=== PATIENT | male | born 1950 ===

== ENCOUNTER 2024-06-11 09:13 | Outpatient (AMB) | payer MEDICARE, SELFPAY ==
--- NOTE | 2024-06-11 09:24 | MHC.OFFVIS ---
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 He did undergo low back surgery by Dr. Luciano Espinal just prior to his left total hip replacement surgery in September of 2018. He denies any fevers or chills. States that his back pain has gotten worse over the last 2 years in spite of continued non operative treatments. He has done physical therapy exercises which aggravated his back pain. He has tried Tylenol and anti-inflammatory medicines which gave him minimal relief. The patient states that his back pain is interfering with his activities of daily living and his ability to sleep well through the night. Allergies No Known Allergies Allergy (Verified 06/11/24 09:27) Medication List - Last Reconciled 06/12/24 by Albert Lawson MD No Known Home Meds [facility] Surgical History (Updated 06/11/24 @ 09:30 by Sarabjit Andrade) History of left hip replacement Social History (Updated 06/11/24 @ 09:28 by Sarabjit Andrade) Alcohol intake: never Patient Tobacco Use Status: Never used Tobacco Current occupational status: employed Physical Exam Const Other: Well-nourished well-developed very friendly male awake alert and oriented x3 in no acute distress Back/Spine/Pelvis Other: Low back examination shows left-sided paraspinal muscle tenderness, pain with range of motion, positive straight leg raise test on the left at 70 degrees, 4/5 strength with testing of his left hip flexors and knee extensors when compared to 5/5 strength on his right side Extrem Other: Left hip examination shows minimal discomfort with range of motion, no tenderness over his bursa Results Reviewed Results Reviewed: X-rays of the patient's lower lumbar spine show moderate to severe diffuse degenerative disc disease, no acute bony abnormalities X-rays of the patient's left hip show a total hip arthroplasty in good position with no signs of loosening, no acute bony abnormalities Assessment & Plan Assessment & Plan (1) Low Back Pain: Code(s): M54.50 - Low back pain, unspecified Plan Mr. Odom continues to do fairly well after undergoing left total hip replacement surgery in September of 2018. He does have progressively worsening low back pain with associated left leg weakness possibly due to lumbar stenosis or a disc herniation. Thus, I will send him for an MRI of his lumbar spine for further evaluation. I will contact him by phone once the MRI results are available. He will call me prior to that time should his symptoms worsen in any way. Feel free to call me at any time should questions regarding his orthopedic management arise. I spent 20 minutes in reviewing the patient's records and imaging studies, seeing the patient and documenting in the medical record. Orders: Orders XR hip LT min 2V 06/11/24 M25.552 - Pain in left hip MR lumbar spine wo con 06/11/24 M54.50 - Low back pain, unspecified Coding Level of Care Code Est Pt Level 3 (79375) Diagnoses Low Back Pain M54.50
== END 2024-06-11 10:00 | disposition home or self-care (01) ==
PROVIDERS: PCP Internal Medicine; Visit Provider Orthopaedic Surgery
DX: M54.50 Low back pain, unspecified (principal)
CPT/HCPCS: 99213

== ENCOUNTER 2024-06-11 10:38 | Outpatient (REF) | payer MEDICARE, SELFPAY ==
--- NOTE | ~2024-06-11 | XR_ITS ---
EXAMINATION: XR HIP, LEFT CLINICAL INFORMATION: Hip pain COMPARISON: None available. TECHNIQUE: Two views of the left hip and pelvis. FINDINGS: Surgical mesh from prior hernia repair. Post surgical changes left hip arthroplasty. No evidence of hardware fracture or complication. Right hip and sacroiliac joint spaces are maintained. Degenerative disc disease in the visualized lower lumbosacral spine. Few foci of calcification adjacent to the left greater trochanter may reflect foci of heterotopic ossification. Atherosclerotic vascular calcification. XR/XR hip LT min 2V IMPRESSION: 1. Post surgical changes left hip arthroplasty. No evidence of hardware fracture or complication. 2. Degenerative disc disease in the visualized lower lumbosacral spine. 3. Few foci of calcification adjacent to the left greater trochanter may reflect foci of heterotopic ossification. Electronically signed by: Aubrie Castillo MD 07/04/2024 09:36 PM EDT
== END 2024-06-11 10:39 | disposition home or self-care (01) ==
LOC: HO.HOSX 10:38
PROVIDERS: Visit Provider Orthopaedic Surgery
DX: M25.552 Pain in left hip (principal); M54.50 Low back pain, unspecified
CPT/HCPCS: 73502; 99212

== ENCOUNTER 2024-07-17 09:36 | Outpatient (AMB) | payer MEDICARE, SELFPAY ==
--- NOTE | 2024-07-17 09:38 | A.OFFVIS_ITS ---
Intake Visit Reasons: MRI Lumbar Spine Review Intake Note: Chirag is a 74 year old male who presents with complaints of progressively worsening low back pain as well as intermittent weakness in his left leg. He did undergo low back surgery by Dr. Luciano Espinal just prior to his left total hip replacement surgery in September of 2018. He denies any fevers or chills. States that his back pain has gotten worse over the last 2 years in spite of continued non operative treatments. He has done physical therapy exercises which aggravated his back pain. He has tried Tylenol and anti- inflammatory medicines which gave him minimal relief. The patient states that his back pain is interfering with his activities of daily living and his ability to sleep well through the night. Allergies No Known Allergies Allergy (Verified 07/17/24 09:41) Medication List - Last Reconciled 07/17/24 by Albert Lawson MD No Known Home Meds [facility] Surgical History (Updated 06/11/24 @ 09:30 by Sarabjit Andrade) History of left hip replacement Social History (Updated 06/11/24 @ 09:28 by Sarabjit Andrade) Alcohol intake: never Patient Tobacco Use Status: Never used Tobacco Current occupational status: employed Physical Exam Const Other: Well-nourished well-developed very friendly male awake alert and oriented x3 in no acute distress Back/Spine/Pelvis Other: Low back examination shows left-sided paraspinal muscle tenderness, pain with range of motion, positive straight leg raise test on the left at 70 degrees Results Reviewed Results Reviewed: MRI of the patient's lumbar spine performed at [facility] imaging shows evidence of mild to moderate canal narrowing and moderate bilateral foraminal narrowing Assessment & Plan Assessment & Plan (1) Low back pain radiating to left leg: Code(s): M54.50 - Low back pain, unspecified; M79.605 - Pain in left leg Category: Medical Plan Mr. Odom presents with progressively worsening low back pain due to lumbar stenosis. Thus, I will arrange for the patient to have an evaluation in our neurosurgery department here at [facility]. The patient will contact me prior to that appointment should his symptoms worsen in any way. Feel free to call me at any time should questions regarding his orthopedic management arise. I spent 22 minutes in reviewing the patient's records and imaging studies, seeing the patient and documenting in the medical record. Orders: Referrals Neuro Spine Referral M54.50 - Low back pain, unspecified, M79.605 - Pain in left leg Coding Level of Care Code Est Pt Level 3 (74627) Complex EM visit Add On G2211 Diagnoses Low back pain radiating to left leg M54.50; M79.605
== END 2024-07-17 10:03 | disposition home or self-care (01) ==
PROVIDERS: PCP Internal Medicine; Visit Provider Orthopaedic Surgery
DX: M48.061 Spinal stenosis, lumbar region without neurogenic claudication (principal); M79.605 Pain in left leg
CPT/HCPCS: 99213; G2211

== ENCOUNTER → 2024-07-17 09:36 | Outpatient (BNVA) | payer MEDICARE, SELFPAY | PROVIDERS: PCP Internal Medicine; Visit Provider Orthopaedic Surgery | DX: M54.50 Low back pain, unspecified (principal); M79.605 Pain in left leg | CPT/HCPCS: 99212 ==

== ENCOUNTER 2024-08-02 09:06 | Outpatient (AMB) | payer MEDICARE, SELFPAY ==
--- NOTE | 2024-08-02 09:07 | A.SPINEOV_ITS ---
Intake Visit Reasons: lumbar stenosis Intake Note: Mr. Odom is here today c/o low back pain. 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 HPI: This 74-year-old male with a history of a left hip replacement and a lumbar decompression in the past presents with progressive left-sided back pain over the last past year. Pain is worse in the morning. Basically the pain is present the whole day. The patient noticed that he walks in a flexed position to alleviate symptoms. Leaning forward over a shopping cart provides relief. Cycling is better than walking. He saw Dr. Lawson, will exclude a problem with the left hip and referred him to me for an evaluation. The following conservative treatment options were tried without success antiinflammatories, tylenol, physician guided home exercise plan, cortisone shots PMH: Hypertension, left shoulder rotator cuff repair, left hip replacement, lumbar decompression Medications: Lisinopril verapamil Allergies: Demerol Social history: [] Physical Exam: Pleasant male, he points towards pain on the left side of his lumbar spine. Straight leg raise is negative. No neurological deficits for motor sensation or reflexes Radiological Studies: MRI done at [facility] on 06/25/2024 shows multilevel lumbar spondylosis with lumbar disc degeneration. There is moderate to severe bilateral L5 foraminal stenosis and right L4 foraminal stenosis. A standing x- ray with flexion-extension show some mild degenerative scoliosis of the upper lumbar spine and no instability. I was able to retrieve all the images from [facility] and the scoliotic curve seems to be unchanged. Impression/Plan: This patient is suffering from left-sided back pain with a component of neurogenic claudication, although radiation down his leg is not happening. MRI shows severe bilateral L5 foraminal stenosis and I am wondering if this is the source of his pain. Therefore I will refer him to pain management for a left L5 nerve block. He will call my office for follow-up and to decide if a left L5 foraminotomy would be beneficial. Thank you for allowing me to participate in your patients care. total time spent was 50 minutes in counseling ,coordination of plan, personal review of imaging, surgical decision making and subsequent plan Agustin Ge MD, PhD Spine Fellowship Trained Neurosurgeon Director, [facility] Orders: Orders XR lumbar spine 4V min Today M48.062 - Spinal stenosis, lumbar region with neurogenic claudication Referrals Pain Management Referral M48.062 - Spinal stenosis, lumbar region with neurogenic claudication Coding Level of Care Code New Pt Level 4 (78348) Diagnoses Lumbar stenosis with neurogenic claudication M48.062
== END 2024-08-02 10:25 | disposition home or self-care (01) ==
PROVIDERS: PCP Internal Medicine; Referring Provider Orthopaedic Surgery; Visit Provider Neurological Surgery
DX: M48.062 Spinal stenosis, lumbar region with neurogenic claudication (principal)
CPT/HCPCS: 99204

== ENCOUNTER 2024-08-02 09:06 | Outpatient (REF) | payer MEDICARE, SELFPAY ==
--- NOTE | ~2024-08-02 | XR_ITS ---
EXAMINATION: XR LUMBAR SPINE 4 VIEWS CLINICAL INFORMATION: Spinal stenosis, lumbar region with neurogenic claudication M48.062. COMPARISON: None TECHNIQUE: AP and lateral views with flexion and extension FINDINGS: There is a mild levoscoliosis of the lumbar spine. Normal vertebral body height. There is diffuse degenerative disc disease with disc space narrowing and extensive osteophyte formation throughout the lumbar spine consistent with moderate to severe degenerative disc disease. Moderate posterior facet joint arthropathy is seen in the lumbar spine from L2 through S1. Vertebral body alignment is well maintained. No evidence of instability with flexion or extension. There is limited motion with flexion and extension likely due to degenerative changes. XR/XR lumbar spine 4V min IMPRESSION: Moderate to severe degenerative disc disease and posterior facet joint arthropathy. No evidence of instability. Electronically signed by: Srinath Morel MD 10/08/2024 10:14 AM MARILYN STARK
== END 2024-08-02 09:07 | disposition home or self-care (01) ==
LOC: HO.HOSX 09:06
PROVIDERS: PCP Internal Medicine; Visit Provider Neurological Surgery
DX: M48.062 Spinal stenosis, lumbar region with neurogenic claudication (principal)
CPT/HCPCS: 72110; 99202

== ENCOUNTER 2024-08-13 14:16 | Outpatient (AMB) | payer MEDICARE, SELFPAY ==
--- NOTE | 2024-08-13 14:17 | MHC.OFFVIS ---
Vital Signs 08/13/24 14:26 08/13/24 14:27 Height 5 ft 7 in Weight 147 lb BMI 23.0 BP 180/80 H 160/62 H Blood Pressure Location Rt brachial Lt brachial Position Sitting Sitting Pulse 70 55 Pulse Source Pulse Oximeter Pulse Oximetry (%) 97 Oxygen Delivery Method Room Air Comment bp recheck Intake Visit Reasons: Spinal stenosis, lumbar region Intake Note: Pain today 03/01 Summer Intern Required: No Accompanied by: Self / Same As Patient Allergies meperidine [From Demerol] Allergy (Unknown, Verified 08/13/24 14:29) Nausea HPI HPI Spinal stenosis, lumbar region: Details: Patient is a pleasant 74 years old male with prior history of decompressive lumbar laminectomy (Dr. Espinal, 2018) and left hip replacement surgery, presents today for evaluation of left low back pain. He was referred to our office by Dr. Ge for a left L5 nerve block for potential L5 foraminotomy. Patient denies any recent trauma, injury or falls. Pain has been progressively getting worse over the past 1 year and is associated with intermittent neurogenic claudication and left leg weakness. He was also seen by Dr. Lawson and excluded problem with his left hip and no evidence of hardware fracture or complication. Patient reports back pain is reproduces by his daily activities, walking, prolonged standing or sitting, getting up, lifting, twisting, bowling or cycling. He reports segment is better than walking. Leaning forward over a shopping cart also relieves some of his symptoms. Pain is most severe in the mornings and is rated at 7/10. Back pain has been resistant to conservative treatments including injections at [facility], physical therapy, home exercise program, Tylenol and naproxen. He completed lumbar spine MRI as noted below. Denies any fever or chills, abdominal or groin pain, burning, tingling, numbness, bladder or bowel dysfunction or saddle anesthesia. Oswestry low back pain disability score = 15 (moderate disability) Location: Left sided low back pain, left leg pain with walking or activities Duration: Progressively getting worse over the past 1-2 years Characteristics of symptom or complaint: Aching, sore, sharp, stabbing, hurting Aggravating or associated factors: Walking, prolonged sitting or standing, ADLs, lifting, pulling, twisting Relieving factors: Movement, stretching, leaning forward over a shopping cart, naproxen Treatment: Back injections- [facility], PT at [facility] , home exercise program [facility] Medical History Hypertension Surgical History Hx of decompressive lumbar laminectomy History of repair of rotator cuff (~2017) History of left hip replacement Social History Alcohol intake: current Alcohol intake frequency: holidays/special occasions only Patient Tobacco Use Status: Never used Tobacco Current occupational status: employed Review of Systems Const All systems reviewed & are unremarkable except as noted in HPI and below Physical Exam Vital Signs: Last Vital Signs Pulse 55 08/13/24 14:27 BP 160/62 H 08/13/24 14:27 Pulse Ox 97 08/13/24 14:26 Oxygen Delivery Method Room Air 08/13/24 14:26 BMI result Body Mass Index 23.0 General: Appears afebrile. Alert and oriented. Mood and affect appropriate. Follows and participates in conversation appropriately. Respiratory effort is unlabored. No cough. Able to transition from sit to stand unassisted. Ambulates with bilaterally normal heel strike and toe off. General: Yes no CVA tenderness Back/Spine/Pelvis Other: Limited lumbar ROM due to pain. Non-antalgic gait. No limping. Lumbar extension, axial rotations and flexion forward reproduce mild to moderate symptoms. Demonstrates 5/5 strength of quadriceps bilaterally as well as flexion/dorsiflexion of bilateral feet against resistance. 2+ pedal pulses bilaterally. Seated straight leg rise with dorsiflexion is negative bilaterally. +1 patellar and achilles reflexes bilaterally. Facet loading test positive bilaterally. Kaz sign positive bilaterally, Hi?s, Pelvic compression and Stinchfield tests are positive on the left. No groin pain with I/E hip rotations. Significant paraspinals tenderness mostly on the left side, mid and lower back. Valsalva maneuver negative. Back: no CVA tenderness Cervical Spine: cervical ROM normal, No cervical muscular tenderness and No Cervical spine tenderness Thoracic/Lumbar Spine: thoracic and lumbar spine normal to inspection, Thoracic/lumbar spine scar(s), Lasegue's sign positive on the left and localized, pain with thoraco-lumbar ROM, paraspinal muscle tenderness, Thoracic/lumbar scoliosis (mild), No thoracic spinal tenderness and lumbar spinal tenderness at L4 and at L5 Pelvis: buttock tenderness on the right and no sciatic notch tenderness Sacroiliac joints: on the right nontender and on the left tender to palpation Results Reviewed Results Reviewed: MR SPINE LUMBAR without CONTRAST 06/25/24 at [facility] INDICATION: Low back pain. Pain in left leg. TECHNIQUE: Unenhanced multiplanar, multisequence MR imaging of the lumbar spine. COMPARISON: None. FINDINGS: Normal lumbar alignment is demonstrated. Vertebral heights are well maintained. Bone marrow signal is within normal limits, and no suspicious osseous lesion is identified. Conus medullaris is unremarkable. Paraspinal soft tissues and visualized portions of the abdomen and pelvis are unremarkable. At L1-2 concentric disc bulge with dvmi-ya-nxijzqpo canal narrowing and moderate bilateral foraminal narrowing. At L2-3 concentric disc bulge with ampm-uf-tecfbvcf canal narrowing and moderate bilateral foraminal narrowing. At L3-4 concentric disc bulge with iqwm-ny-sfwqklem canal narrowing and moderate bilateral foraminal narrowing. At L4-5 concentric disc bulge with scel-jk-teywypnx canal narrowing, and moderate bilateral foraminal narrowing. At L5-S1 concentric disc bulge with vkxx-sf-fhxgslev canal narrowing and ezmavrlq-jc-acpgmz bilateral foraminal narrowing IMPRESSION: 1. Akco-nf-ysarmvmo multilevel degenerative disc disease with loss of disc height and disc desiccation seen diffusely throughout the lumbar spine. 2. Vertebral heights are preserved. No malalignments. 3. No significant canal stenosis or disc herniation. 4. Concentric disc bulges with diffuse foraminal stenosis as above, wtwjrjcl-nz-oivfbm bilateral at L5-S1 level. 5. No STIR signal abnormality to suggest bone marrow edema, soft tissue or ligamentous injury. XR HIP, LEFT 06/11/24 CLINICAL INFORMATION: Hip pain FINDINGS: Surgical mesh from prior hernia repair. Post surgical changes left hip arthroplasty. No evidence of hardware fracture or complication. Right hip and sacroiliac joint spaces are maintained. Degenerative disc disease in the visualized lower lumbosacral spine. Few foci of calcification adjacent to the left greater trochanter may reflect foci of heterotopic ossification. Atherosclerotic vascular calcification. IMPRESSION: 1. Post surgical changes left hip arthroplasty. No evidence of hardware fracture or complication. 2. Degenerative disc disease in the visualized lower lumbosacral spine. 3. Few foci of calcification adjacent to the left greater trochanter may reflect foci of heterotopic ossification. Assessment & Plan Assessment & Plan (1) Hx of decompressive lumbar laminectomy: Code(s): Z98.890 - Other specified postprocedural states Category: Medical (2) Lumbar stenosis with neurogenic claudication: Code(s): M48.062 - Spinal stenosis, lumbar region with neurogenic claudication Category: Medical (3) Low back pain radiating to left leg: Code(s): M54.50 - Low back pain, unspecified; M79.605 - Pain in left leg Category: Medical (4) Sacroiliac joint pain: Code(s): M53.3 - Sacrococcygeal disorders, not elsewhere classified Category: Medical Plan Schedule Left L5 selective nerve block with local and fluoroscopy for left sided low back pain due to spinal stenosis. If positive results, patient will follow up with Dr. Ge for potential left L5 foraminotomy. He also has SIJ pain on the left with provocative testing. Patient is aware to hold Aspirin, vitamin E and Fish oil 7 days prior to injection. Expectations, risks and benefits were reviewed. Patient is aware he will be contacted to schedule this procedure. Scripts provided for lidocaine patches and naproxen at patient's request. Reviewed side effects and precautions with patient. All questions were answered and the patient is in agreement of plan. Follow-up after injections and sooner as needed. Medications: New naproxen 500 mg PO BID PRN 60 tabs 1RF pain M48.062 - Spinal stenosis, lumbar region with neurogenic claudication, M54.50 - Low back pain, unspecified, M79.605 - Pain in left leg lidocaine 5% leave on most painful area for up to 12 hrs topically daily; 30 days 30 ea 1RF pain M48.062 - Spinal stenosis, lumbar region with neurogenic claudication, M54.50 - Low back pain, unspecified, M79.605 - Pain in left leg, Z98.890 - Other specified postprocedural states Coding Level of Care Code New Pt Level 4 (14108) Complex EM visit Add On G2211 Diagnoses Hx of decompressive lumbar laminectomy Z98.890 Lumbar stenosis with neurogenic claudication M48.062 Low back pain radiating to left leg M54.50; M79.605 Sacroiliac joint pain M53.3
[2024-08-13 14:26] VITALS: BP 180/80; PULSE 70; O2SAT 97; BMI 23.0
[2024-08-13 14:27] VITALS: BP 160/62; PULSE 55
== END 2024-08-13 15:14 | disposition home or self-care (01) ==
PROVIDERS: PCP Internal Medicine; Visit Provider Nurse Practitioner Family
DX: Z98.890 Other specified postprocedural states (principal); M48.062 Spinal stenosis, lumbar region with neurogenic claudication; M54.50 Low back pain, unspecified; M79.605 Pain in left leg; M53.3 Sacrococcygeal disorders, not elsewhere classified
CPT/HCPCS: 99204; G2211

== ENCOUNTER → 2024-08-13 14:16 | Outpatient (BNVA) | payer MEDICARE, SELFPAY | PROVIDERS: PCP Internal Medicine; Visit Provider Nurse Practitioner Family | DX: M48.062 Spinal stenosis, lumbar region with neurogenic claudication (principal); M54.50 Low back pain, unspecified; M53.3 Sacrococcygeal disorders, not elsewhere classified; M79.605 Pain in left leg; Z98.890 Other specified postprocedural states | CPT/HCPCS: 99202 ==

== ENCOUNTER 2025-05-08 07:56 | Outpatient (REF) | payer MEDICARE, SELFPAY ==
--- NOTE | ~2025-05-08 | XR_ITS ---
EXAMINATION: XR PELVIS 1-2 VIEWS HISTORY: M25.552 - Pain in left hip COMPARISON: Comparison is made with the prior examination dated 06/11/2024. FINDINGS: Two AP views of the pelvis are submitted. The patient is status post left total hip arthroplasty. The conus are in anatomic alignment. There is no radiographic evidence of loosening. There is no fracture or dislocation. The right hip joint space is maintained. There are vascular calcifications. There is degenerative disc disease of the lower lumbar spine. XR/XR pelvis 1-2V IMPRESSION: Status post left total hip arthroplasty. Electronically signed by: Uriel Salazar MD 05/08/2025 01:57 PM EDT
--- OUTSIDE RECORDS SUMMARY | 2025-05-08 07:58 | XMS_ITS | Clinical Summary ---
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 Name Role Phone Hermilo Fermin MD Primary Care Provider [phone] Allergies Active Allergy Reactions Criticality Noted Date Comments Meperidine 02/20/2018 Gluten 02/20/2018 Medications Medication Sig Dispensed Refills Start Date End Date Status lisinopril (PRINIVIL,ZESTRIL) tablet 10 mg 0 11/28/2017 Active verapamil (VERELAN PM) 120 MG 24 hr capsule 0 12/11/2017 Active HYDROmorphone (DILAUDID) 2 MG tablet take 1 tablet by mouth every 6 hours if needed FOR PAIN 0 12/29/2017 Active diclofenac (VOLTAREN) 75 MG EC tablet 0 03/30/2018 Active predniSONE (DELTASONE) 5 mg tablet take 3 tablet by mouth three times a day for 2 days then 2 tablet... (REFER TO PRESCRIPTION NOTES). 0 08/03/2018 Active gabapentin (NEURONTIN) 300 MG capsule 0 07/23/2018 Active amoxicillin (AMOXIL) 500 MG tablet Take 4 tabs 1 hour prior to dental appointment 20 tablet 3 10/25/2018 Active omeprazole (PriLOSEC) 40 MG capsule Take 40 mg by mouth daily. 0 12/20/2021 Active naproxen (NAPROSYN) 500 MG tablet Take 500 mg by mouth 2 (two) times a day. 0 01/01/2022 Active Active Problems Problem Noted Date Diagnosed Date Pain of left hip joint 12/09/2018 Postop check 10/25/2018 Osteoarthritis of one hip, left 09/07/2018 Arthritis of left hip 02/20/2018 Family History Medical History Relation Name Comments Heart disease Father Relation Name Status Comments Father Social History Tobacco Use Types Packs/Day Years Used Date Smoking Tobacco: Never Assessed Sex and Gender Information Value Date Recorded Sex Assigned at Not on file Gender Identity Not on file Sexual Orientation Not on file Job Start Date Occupation Industry Not on file Not on file Not on file Last Filed Vital Signs Vital Sign Reading Time Taken Comments Blood Pressure - - Pulse - - Temperature - - Respiratory Rate - - Oxygen Saturation - - Inhaled Oxygen Concentration - - Weight 68 kg (150 lb) 02/02/2021 9:29 AM EDT Height 170.2 cm (5' 7 ) 02/02/2021 9:29 AM EDT Body Mass Index 23.49 02/02/2021 9:29 AM EDT Plan of Treatment Health Maintenance Due Date Last Done Comments Hepatitis C Screening 1950 COVID-19 Vaccine (#1) 1949 Depression Screening 1961 Preventative Health Evaluation 1967 DTap / Tdap / Td (1 - Tdap) 1968 Shingrix-Zoster Vaccine (1 of 2) 1999 Fall Risk Assessment 2014 Pneumococcal Vaccine (1 of 1 - PCV) 2014 RSV Adult > 60+ Yrs or Pregn ant (1 - 1-dose 75+ series) 2024 Influenza Vaccine (#1) 2025 Hepatitis B Vaccines Aged Out No long er eligible based on patient's age to complete this topic RSV Ped < 20 months Aged Out No longe r eligible based on patient's age to complete this topic Care Teams Sow Farm Manager Relationship Specialty Start Date End Date Hermilo Fermin MD [address] [place] [id number] PCP - General Internal Medicine 02/14/18
--- OUTSIDE RECORDS SUMMARY | 2025-05-08 07:59 | XMS_ITS | Data Portability ---
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 Plan: Findings on his exam and his recent MRI imaging study have been reviewed in detail with the patient. Pathophysiology of this common problem has been reviewed with the patient. At this time, his symptoms are improving. Given this, no additional treatment is instituted at this time. He can continue with the physical therapy. He can anticipate returning to activities as symptoms allow. I think it is reasonable to return to bowling with the use of the forearm strap. If, instead of improvement, he sees worsening of his symptoms, he will call for follow-up. He understands that when all conservative measures fail, there is a surgical option for treating this problem. Questions asked and answered to his satisfaction today. 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 Plan: Findings on his exam and his recent MRI imaging study have been reviewed in detail with the patient. Pathophysiology of this common problem has been reviewed with the patient. At this time, his symptoms are improving. Given this, no additional treatment is instituted at this time. Updated PT rx is provided today. He can continue with activities as symptoms allow. I think it is reasonable to return to bowling with the use of the forearm strap. If, instead of improvement, he sees worsening of his symptoms, he will call for follow-up. He understands that when all conservative measures fail, there is a surgical option for treating this problem. Questions asked and answered to his satisfaction today. [email or web address] Not available 12/16/2024 16:43:19 Plan of Treatment Reminders Order Date Submit Date Provider Last Modified By Organization Details Last Modified Time Details Appointments None recorded. Lab None recorded. Referral physical therapist referral - right elbow medial epicondyl itis OCCUPATIO NAL 2024 025 [email or web address] Not available 08:39:21 Procedures None recorded. Surgeries None recorded. Imaging None recorded. Medication Orders None recorded. Patient TargetsNo targets recorded. Patient InstructionsNo instructions recorded. Reason for Referral Physical Therapist Referral for Medial epicondylitis right elbow medial epicondylitis OCCUPATIONAL Referring Physician: Ana Benítez, Orthopedic Surgery, Encounter Date: 12/16/2024 Medical Equipment None Reported. Allergies Allergen ID Allergen Name Allergen Category Reaction Reaction Severity Criticality Documentation Date Start Date Code Code System Note Provider Name and Address Organization Details Recorded Time 677556 Demerol medicatio n Not available Not available Not available 12/25/20232008 92712 1 RxNorm Aller gyRea ction : 'Naus ea/Vo mitin g/Asha rrhea '; Not Available [employer] 16:01:37 Medications Name Sig Start Date Stop Date Status Note LastModified by Organization Details LastModified Time [id number] 4mg - ipamorelin 4mg lyophilized vial MIX WITH 4ML OF DILUENT THEN INJECT 0.2ML (20 UNITS) SUBCUTANE OUSLY AT BEDTIME 5 DAYS PER WEEK FOR 28 DAYS DIRECTED active Not Available Not Available No t Available neuropathy 1.0 (diclofenac 3 + doxepin 2.5 + gabapentin 3 + lidocaine 5) APPLY 1-2 PUMPS (1-2 GRAMS) TO FOCAL PAIN AREA TWICE DAILY active Not Available Not Available No t Available verapamil ER (SR) 120 mg tablet,exte nded release TAKE 1 TABLET BY MOUTH DAILY active Not Available Not Available No t Available atorvastati n 20 mg tablet TAKE 1 TABLET BY MOUTH DAILY 12/16 completed Not Available Not Available Not Available hydrocortis one 2 % lotion APPLY 1-2 MLS TO FOCAL PAIN AREA TWICE DAILY AFTER COMPOUND active Not Available Not Available No t Available gabapentin 400 mg capsule TAKE 1 CAPSULE BY MOUTH TWICE DAILY active Not Available Not Available No t Available omeprazole 40 mg capsule,del ayed release TAKE 1 CAPSULE BY MOUTH DAILY 12/16 completed Not Available Not Available Not Available oxycodone-a cetaminophe n 5 mg-325 mg tablet TAKE 1 TABLET BY MOUTH EVERY 6 HOURS FOR 3 DAYS NEEDED FOR SEVERE PAIN 12/16 completed Not Available Not Available Not Available benzonatate 100 mg capsule TAKE 1 CAPSULE BY MOUTH THREE TIMES DAILY FOR 7 DAYS 12/16 completed Not Available Not Available Not Available Sure Comfort Insulin Syringe 1 mL 30 gauge x 03/07 USE DIRECTED FOR SUBCUTANE OUS INJECTION S active Not Available Not Available No t Available cephalexin 500 mg capsule TAKE 1 CAPSULE BY MOUTH TWICE DAILY FOR 5 DAYS 12/16 completed Not Available Not Available Not Available pseudoephed rine-guaife nesin ER 80-700 mg tablet,exte nded release DO NOT DRIVE WHILE ON THIS MEDICATIO N 02/18 completed Statu s: 'Disc ontin ued'; Not Available Not Available Not Available lisinopril 10 mg tablet TAKE 1 TABLET BY MOUTH DAILY active Not Available Not Available No t Available lidocaine 5 % topical patch UNWRAP AND APPLY 1 PATCH TO MOST PAINFUL AREA FOR UP TO 12 HOURS DAILY FOR PAIN 12/16 completed Not Available Not Available Not Available omeprazole 20 mg capsule,del ayed release TAKE 1 CAPSULE BY MOUTH DAILY active Not Available Not Available No t Available ibuprofen 600 mg tablet TAKE 1 TABLET BY MOUTH EVERY 8 HOURS FOR 10 DAYS active Not Available Not Available No t Available albuterol sulfate HFA 90 mcg/actuati on aerosol inhaler INHALE 2 PUFFS BY MOUTH EVERY 4 HOURS NEEDED FOR SHORTNESS OF BREATH OR WHEEZING 12/16 completed Not Available Not Available Not Available naproxen 500 mg tablet TAKE 1 TABLET BY MOUTH TWICE DAILY NEEDED FOR PAIN 12/16 completed Not Available Not Available Not Available oxycodone 5 mg tablet TAKE 1 TABLET BY MOUTH EVERY 12 HOURS NEEDED FOR PAIN active Not Available Not Available No t Available ciclopirox 0.77 % topical cream APPLY 1 APPLICATI ON EXTERNALL Y TWICE A DAY FOR 30 DAYS 12/16 completed Not Available Not Available Not Available BD Insulin Syringe Ultra-Fine 0.5 mL 30 gauge x 1/2 USE DIRECTED FOR DAILY PEPTIDE INJECTION active Not Available Not Available No t Available oxycodone HCl-oxycodo ne-ASA 1-3 tablets Q4-[address] WHILE ON THIS MEDICATIO N 12/16 completed Statu s: 'Curr ent'; Not Available Not Available Not Available colchicine 0.6 mg capsule TAKE 1 CAPSULE BY MOUTH DAILY FOR 5 DAYS 12/16 completed Not Available Not Available Not Available Vitals Date Recorded Body height Body mass index (BMI) Body weight Provider Name and Address Organization Details Last Updated DateTime 12/16/2024 170.18 cm 23 kg/m2 67901.08 g Nadia Iverson [facility] 12/16/2024 13:10:12 Date Recorded Body height Body mass index (BMI) Body weight Provider Name and Address Organization Details Last Updated DateTime 01/29/2024 170.18 cm 23 kg/m2 55630.08 g GENARO NEFF [facility] 01/29/2024 14:18:58 Social History None recorded. Functional Status None recorded. Mental Status None recorded. Family History Nothing Reported. Medical History No medical history recorded. Past Encounters Encounter ID Performer Location Encounter Start Date Encounter Closed Date Diagnosis/Indication Diagnosis SNOMED-CT Code Diagnosis ICD10 Code Diagnosis Note [id number] MD [place] [address] 01/29/2024 14:02:47 02/22/2024 06:00:30 Medial epicondylitis 60777506 M77.01 [id number] [place] [address] 12/16/2024 13:02:20 12/31/2024 08:39:21 Medial epicondylitis 82110491 M77.01 Health Concerns Section Related Observation LastModified by Organization Brittany gonsalez LastModified Time None Recorded Concern Status LastModified by Organization Details LastModified Time None Recorded Advance Directives Directive None Recorded Payers Insurance Date Sequence Insurance Name Policy Number Policy Philip Covered Member ID Philip Member ID Guarantor Name 12/13/2024 1 [place] [employer] Chirag Odom [id number] Chirag Odom 12/31/2024 2 [place] [id number] Chirag Odom [id number] Chirag Odom Notes Date Note Type Note Provider Name and Address Organization Details Recorded Time 12/16/2024 text/html 74 yo ambi male, works semi retired [employer], competitive [employer], seen today for follow up second opinion re right elbow medial epicondylitis. was seen by me in January 2024.Initial injury to the elbow occurred in 05/2023, while bowling in a tournament. initial NEOS treatment in July 2023. Treated by Dr. Sofia and KEYON Velasco with PT, cortisone injections.Currently , he has minimal pain, he has some mild symptoms when bowling but it is much better than it was when it was at its worst. He notes some deconditioning and is interested in discussing his questions with a physical therapist. Ana Benítez MD [address] [place] [address] [address], [place], [address], [facility] 12/16/2024 16:43:34
--- OUTSIDE RECORDS SUMMARY | 2025-05-08 07:59 | XMS_ITS | Patient Health Record ---
Author Organization [facility] Address [address] [place] [address] Care Team Providers Care Tar Kettle Runner Name Role Phone Carmen MURRAY, Jennifer Primary Care Provider Justine Morelos Unavailable [phone] Mai Little Unavailable [phone] Allergies Allergen (clinical drug ingredient) Drug/Non Drug Allergy documented on EMR Reaction Allergy Type Onset Date Status meperidine Demerol nausea Drug Allergy Active codeine Codeine nausea Drug Allergy Active Reason For Referral No Information Medications Medication SIG (Take, Route, Frequency, Duration) Notes Start Date End Date Status Colchicine 0.6 MG 1 capsule Orally onc e a day; Duration: 5 day(s) 02/28/2024 Not-Taking methylPREDNISolone 4 MG as directed Orally 025 Not-Taking Hydrocortisone 2 % APPLY 1-2 MLS TO FOC AL PAIN AREA TWICE DAILY AFTER COMPOUND; Duration: 28 Active Lisinopril 10 MG Oral; Duration: 90 Not-Taking Ibuprofen 600 MG 1 tablet as needed Orally every 8 hrs; Duration: 10 days 06/03/2024 Active Verapamil HCl 120 MG 1 tablet Orally Thr ee times a day; Duration: 30 day(s) Not-Taking Walking Boot/Pneumatic As directed Wear Daily; Duration: Until further notice 03/06/2024 Not-Taking Mitigare 0.6 MG 1 capsule Orally Onc e a day; Duration: 5 days 02/29/2024 Not-Taking Physical Therapy . . Post op Right 1st MPJ implant on 02/28/24 2-3x/week 03/11/2024 Not-Taking Ciclopirox Olamine 0.77 % 1 application Externally Twice a day; Duration: 30 days Active Cephalexin 500 MG 1 capsule Orally Twi ce a day; Duration: 5 day(s) 02/17/2023 Not-Taking Verapamil HCl ER 120 MG TAKE 1 TABLET BY MOUTH DAILY Oral; Duration: 90 Active Percocet 5-325 MG 1 tablet as needed Orally every 6 hrs as need for severe pain; Duration: 3 days 03/01/2024 Not-Taking Lisinopril 10 MG 1 tablet Orally Once a day; Duration: 30 day(s) Active Gabapentin 300 MG 1 capsule Orally PRN Not-Taking Physical Therapy . . . 1x/week 05/09/2024 Not-Taking Immunizations Vaccine Route Administration Date Status Comme nts Influenza Unknown 08/02/2024 Administered Social History Tobacco Use: Social History Observation Description Date Details (start date - stop date) Never Smoker NA - NA Tobacco use other than smoking: Question Answer Notes Are you an other tobacco user? No Tobacco Control (Standard) Question Answer Notes Tobacco use: Nonsmoker Additional Findings: Tobacco non-user Current no nsmoker AUDIT-C (Standard) Question Answer Notes Did you have a drink containing alcohol in the p ast year? 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) Active confirmed Vital Signs Heart Rate 63 /min 03/28/2025 Blood pressure diastolic 87 mm Hg 03/28/2025 Height 5ft 7in in 03/28/2025 Blood pressure systolic 145 mm Hg 03/28/2025 Weight 147 lbs 03/28/2025 BMI 23.02 kg/m2 03/28/2025 Procedures Procedure Date Ordered Date Performed Result Body Sit e , X1936-BJIOB/INJECT, JOINT/BURSA 08/09/2024 N/A Encounters Encounter Location Date Provider Diagnosis [facility] [place] [address] 05/09/2024 Mai Little Tinea pedis of both feet B35.3 and Hallux limitus of right foot M20.5X1 [facility] [address] [facility] [place] [address] 06/03/2024 Mai Little Toe pain, right M79.674 ; Tendinitis of right foot M77.51 and Hallux limitus of right foot M20.5X1 [address] [address] 08/09/2024 Mai Motaa Tendinitis of right foot M77.51 ; Osteoarthritis of joint of toe of right foot M19.071 and Toe pain, right M79.674 [facility] [address] [facility] [place] [address] 11/14/2024 Mai Little Osteoarthritis of joint of toe of right foot M19.071 ; Toe pain, right M79.674 ; Tendinitis of right foot M77.51 and Neuritis of right foot G57.[address] [address] 01/28/2025 Justine So Osteoarthritis of joint of toe of right foot M19.071 ; Toe pain, right M79.674 ; Tendinitis of right foot M77.51 and Neuritis of right foot G57.[address] [address] 03/28/2025 Justine So Osteoarthritis of joint of toe of right foot M19.071 ; Toe pain, right M79.674 ; Tendinitis of right foot M77.51 and Neuritis of right foot G57.[address] [address] 06/03/2024 Mai Little [facility] [address] [facility] [place] [address] 06/03/2024 Mai Little [facility] [address] [place] [address] 06/04/2024 Mai Little [address] [id number] Mai [facility] [address] [address] 08/12/2024 Mai [facility] [address] [address] 09/02/2024 Mai [facility] [address] [address] 11/04/2024 Mai [facility] [address] [address] 11/12/2024 Mai [facility] [address] [address] 11/14/2024 Mai [facility] [place] [address] [facility] [address] [place] [address] 12/20/2024 Mai [facility] [address] [address] 12/25/2024 Mai [facility] [place] [address] [address] 12/30/2024 Mai [facility] [address] [address] 01/28/2025 [facility] [address] [address] 02/06/2025 [facility] [address] [address] 03/28/2025 Justine So Assessments Encounter Date Diagnosis (ICD Code) Assessment Notes Treatment Notes Treatment Clinical Notes Section Notes 05/09/2024 Tinea pedis of both feet (ICD-10 - B35.3) 06/03/2024 Toe pain, right (ICD-10 - M79.674) 06/03/2024 Tendinitis of right foot (ICD-10 - M77.51) 08/09/2024 Tendinitis of right foot (ICD-10 - M77.51) 08/09/2024 Osteoarthritis of joint of toe of right foot (ICD-10 - M19.071) 11/14/2024 Toe pain, right (ICD-10 - M79.674) 11/14/2024 Osteoarthritis of joint of toe of right foot (ICD-10 - M19.071) 01/28/2025 Toe pain, right (ICD-10 - M79.674) 01/28/2025 Tendinitis of right foot (ICD-10 - M77.51) 01/28/2025 Osteoarthritis of joint of toe of right foot (ICD-10 - M19.071) 03/28/2025 Toe pain, right (ICD-10 - M79.674) 03/28/2025 Tendinitis of right foot (ICD-10 - M77.51) 03/28/2025 Osteoarthritis of joint of toe of right foot (ICD-10 - M19.071) 03/28/2025 Neuritis of right foot (ICD-10 - G57.91) 01/28/2025 Neuritis of right foot (ICD-10 - G57.91) 11/14/2024 Tendinitis of right foot (ICD-10 - M77.51) 08/09/2024 Toe pain, right (ICD-10 - M79.674) 06/03/2024 Hallux limitus of right foot (ICD-10 - M20.5X1) 05/09/2024 Hallux limitus of right foot (ICD-10 - M20.5X1) 11/14/2024 Neuritis of right foot (ICD-10 - G57.91) Plan Of Treatment Pending Test Test Name Order Date X ray : Foot, right 3V 05/15/2023 X ray : Foot, right 3V 02/05/2024 X ray : Foot, right 3V 03/04/2024 X ray : Foot, right 3V 03/11/2024 X ray : Foot, right 3V 03/28/2024 X ray : Foot, right 3V 05/09/2024 X ray : Foot, right 3V 06/03/2024 X ray : Foot, right 3V 08/09/2024 X ray : Foot, right 3V 11/14/2024 X ray : Foot, right 3V 01/28/2025 21310, G8323-UNHTJ/INJECT, JOINT/BURSA 1 Next Appt Details Provider Name:Justine lopez, 07/01/2025 10:15:00 AM, [address] [facility], [address], [place], [address], Insurance Providers Payer Name Payer Address Payer Phone Subscriber Number Group Number Insured Name Patient Relationship to Insured Coverage Start Date Coverage End Date Medicare National [employer] [address] [place] [address] [id number] Chirag Odom Self - patient is the insured [employer] Blue [employer] [address] [place] [address] [id number] Chirag Odom Self - patient is the insured Medical (General) History Medical History History ICD Code Arthritis Back,Hip,and Knee pain High blood pressure Chicken pox Bone implants/screws Surgical History Surgery Date(Month/Year) rotator cuff surgery 03/2007 back surgery/stenosis 06/2018 left hip replacement 09/2018 1st mpj implant, right P/B 02/28/24
--- OUTSIDE RECORDS SUMMARY | 2025-05-08 07:59 | XMS_ITS | Clinical Summary ---
Author Organization [employer] [facility] Address [address] [place] [address] Care Team Providers Care Provider Relations Manager Name Role Phone Hermilo Fermin MD Primary Care Provider [phone] Surgical History Surgery Date Site/Laterality Comments SHOULDER SURGERY PROCEDURE:SHOULDER SURGERY JOINT REPLACEMENT PROCEDURE:JOINT REPLACEMENT Medical History Medical History Date Comments Osteoporosis DX:Osteoporosis Family History Medical History Relation Name Comments Heart disease Father Relation Name Status Comments Father Social History Tobacco Use Types Packs/Day Years Used Date Smoking Tobacco: Never Assessed Sex and Gender Information Value Date Recorded Sex Assigned at Not on file Legal Sex Male 10:37 PM EST Gender Identity Not on file Sexual Orientation Not on file Obstetrics History Plan of Treatment Health Maintenance Due Date Last Done Comments DTaP,Tdap,and Td Vaccines (1 - Tdap) 1968 Pneumococcal Vaccine: 50+ Ye ars (1 of 1 - PCV) 1999 Zoster Vaccines (1 of 2) 1999 Abdominal Aortic Aneurysm (A AA) Screen 09/30/2022 Cholesterol Screening (Lipid Panel) 09/30/2022 Falls Risk Assessment 09/30/2022 Hepatitis C Screening 09/30/2022 Social Influencers of Health Screening 09/30/2022 RSV Immunization Adult Patie nts (1 - 1-dose 75+ series) 2024 COVID-19 Vaccine ( - 2023-2 5 season) 2024 Depression Screening 10/23/2024 Influenza Vaccine (#1) 2025 HIB Vaccines Aged Out No longer eligi ble based on patient's age to complete this topic HPV Vaccines Aged Out No longer eligi ble based on patient's age to complete this topic Hepatitis A Vaccines Aged Out No long er eligible based on patient's age to complete this topic Hepatitis B Vaccines Aged Out No long er eligible based on patient's age to complete this topic IPV Vaccines Aged Out No longer eligi ble based on patient's age to complete this topic MMR Vaccines Aged Out No longer eligi ble based on patient's age to complete this topic Meningococcal ACWY Vaccine Aged Out N o longer eligible based on patient's age to complete this topic Meningococcal B Vaccine Aged Out No l onger eligible based on patient's age to complete this topic RSV Immunization Patients Un payton 20 months Aged Out No longer eligible b ased on patient's age to complete this topic Varicella Vaccines Aged Out No longer eligible based on patient's age to complete this topic Care Teams Provider Relations Manager Relationship Specialty Start Date End Date Hermilo Fermin MD [address] [place] [address] Medical Group [place] PCP - General Internal Medicine 02/14/18
== END 2025-05-08 07:57 | disposition home or self-care (01) ==
LOC: HO.HOSX 07:56
PROVIDERS: Visit Provider Orthopaedic Surgery
DX: M25.851 Other specified joint disorders, right hip (principal); M25.551 Pain in right hip; M25.552 Pain in left hip; M79.651 Pain in right thigh; Z96.642 Presence of left artificial hip joint; Z79.899 Other long term (current) drug therapy
CPT/HCPCS: 72170; 99212

== ENCOUNTER 2025-05-08 12:58 | Outpatient (AMB) | payer MEDICARE, SELFPAY ==
--- NOTE | 2025-05-08 13:06 | MHC.OFFVIS ---
Vital Signs 05/08/25 13:09 Height 5 ft 7 in Weight 147 lb BMI 23.0 Intake Visit Reasons: Right hip pain Intake Note: Chirag is a 75 year old male who presents today with new complaints of right hip pain. He describes his hip pain as sharp in nature. Most of the pain is located with in his right groin and thigh. The patient states that he recently aggravated his hip while putting down mulch around his property. He has stopped riding his bicycle because of the pain. He has tried Tylenol, Naprosyn and a Medrol Dosepak which gave him minimal relief. Allergies meperidine (From Demerol) Allergy (Unknown, Verified 05/08/25 13:06) Nausea Medication List - Last Reconciled 05/08/25 by Albert Lawson MD gabapentin mg PO lidocaine 5% leave on most painful area for up to 12 hrs topically daily; 30 days lisinopril 10 mg PO DAILY multivitamin 1 tab PO DAILY naproxen 500 mg PO BID PRN omeprazole 20 mg PO DAILY verapamil ER 120 mg PO DAILY PFSH Medical History Hypertension Surgical History Hx of decompressive lumbar laminectomy History of repair of rotator cuff (~2016) History of left hip replacement Social History Alcohol intake: current Alcohol intake frequency: holidays/special occasions only Patient Tobacco Use Status: Never used Tobacco Current occupational status: employed Physical Exam Vital Signs: BMI result Body Mass Index 23.0 Const Other: Well-nourished well-developed very friendly male awake alert and oriented x3 in no acute distress Extrem Other: Right hip examination shows slightly decreased range of motion when compared to his left hip, pain with range of motion, no tenderness over his bursa Results Reviewed Results Reviewed: X-rays of the patient's right hip taken today show mild diffuse joint space narrowing, no acute bony abnormalities Assessment & Plan Assessment & Plan (1) Right hip pain: Code(s): M25.551 - Pain in right hip Category: Medical Plan Mr. 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 Thus, I will send the patient for an MRI of his right hip for further evaluation. I will see him back once the MRI results are available to discuss the findings treatment options. Feel free to call me at any time should questions regarding his orthopedic management arise. I spent 22 minutes in reviewing the patient's records and imaging studies, seeing the patient and documenting in the medical record. Orders: Orders XR pelvis 1-2V Today M25.552 - Pain in left hip MR hip RT wo con 05/09/25 M25.551 - Pain in right hip Coding Level of Care Code Est Pt Level 3 (84969) Diagnoses Right hip pain M25.551
[2025-05-08 13:09] VITALS: BMI 23.0
== END 2025-05-08 13:28 | disposition home or self-care (01) ==
LOC: HO.HOS 12:59
PROVIDERS: PCP Internal Medicine; Visit Provider Orthopaedic Surgery
DX: M25.551 Pain in right hip (principal)
CPT/HCPCS: 99213

== ENCOUNTER → 2025-05-08 13:03 | Outpatient (BNV) | payer MEDICARE, SELFPAY | PROVIDERS: Visit Provider Radiology Diagnostic Radiology | DX: M51.369 Other intervertebral disc degeneration, lumbar region without mention of lumbar back pain or lower extremity pain (principal) | CPT/HCPCS: 72170 ==

== ENCOUNTER → 2025-05-31 10:54 | Outpatient (BNV) | payer MEDICARE, SELFPAY | PROVIDERS: PCP Internal Medicine; Visit Provider Radiology Diagnostic Radiology | DX: M25.451 Effusion, right hip (principal) | CPT/HCPCS: 73721 ==

== ENCOUNTER 2025-05-31 10:56 | Outpatient (REF) | payer MEDICARE, SELFPAY ==
--- NOTE | ~2025-05-31 | MR_ITS ---
CLINICAL HISTORY: M25.551 - Pain in right hip Exam: MRI of the right hip without intravenous contrast. Comparison: Radiographs May 08, 2025. Findings: Moderate to severe degenerative change of the right hip joint. This is more extensive than suspected on the patient's earlier radiographs. There is joint space narrowing and osteophyte formation with subcortical bone marrow edema and subcortical cystic change, especially involving the femoral head. Degenerative tear of the superior labrum is seen, especially along the anterior aspect with 2 mm paralabral cyst. Small right hip joint effusion. No acute fractures are identified. [id number] degenerative change of the sacroiliac joints. Metal artifact from the patient's left hip arthroplasty. Convex left lower lumbar curvature with moderate degenerative disc disease and degenerative facet disease in the lower lumbar spine. 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 This document has been electronically signed by: Cesario Rich MD on 06/03/2025 18:12:53
--- OUTSIDE RECORDS SUMMARY | 2025-05-31 10:59 | XMS_ITS | Patient Health Record ---
[facility] Address [address] [place] [address] Care Team Providers Care Sash Clamp Operator Name Role Phone Carmen MURRAY, Jennifer Primary Care Provider Justine Morelos Unavailable [phone] Mai Little Unavailable [phone] Allergies Allergen (clinical drug ingredient) Drug/Non Drug [...] Risk Notes Problem Mononeuropathy of lower limb (078318914) Neuritis of right foot (G57.91) Active confirmed Problem Localized, primary osteoarthritis of the ankle and/or foot (602435800) Osteoarthritis of right ankle and foot (M19.071) Active confirmed Problem Localized, primary osteoarthritis of the ankle and/or foot (590513211) 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) Active confirmed Vital Signs Heart Rate 63 /min 03/28/2025 Blood pressure diastolic 87 mm Hg 03/28/2025 Height 5ft 7in in 03/28/2025 Blood pressure systolic 145 mm Hg 03/28/2025 Weight 147 lbs 03/28/2025 BMI 23.02 kg/m2 03/28/2025 Procedures Procedure Date Ordered Date Performed Result Body Sit e , [id number]/INJECT, JOINT/BURSA 08/09/2024 N/A Encounters Encounter Location Date Provider Diagnosis [facility] [place] [address] 06/03/2024 Mai Perica Toe pain, right M79.674 ; Tendinitis of right foot M77.51 and Hallux limitus of right foot M20.5X1 [facility] [address] [address] 08/09/2024 Mai Perica Tendinitis of right foot M77.51 ; Osteoarthritis of joint of toe of right foot M19.071 and Toe pain, right M79.674 [facility] [address] [place] [address] 11/14/2024 Mai Little Osteoarthritis of joint of toe of right foot M19.071 ; Toe pain, right M79.674 ; Tendinitis of right foot M77.51 and Neuritis of right foot G57.91 [facility] [address] 01/28/2025 Justine So Osteoarthritis of joint of toe of right foot M19.071 ; Toe pain, right M79.674 ; Tendinitis of right foot M77.51 and Neuritis of right foot G57.[address] [address] 03/28/2025 Justine So Osteoarthritis of joint of toe of right foot M19.071 ; Toe pain, right M79.674 ; Tendinitis of right foot M77.51 and Neuritis of right foot G57.[address] [address] 06/03/2024 [facility] [address] [place] [address] 06/03/2024 [facility] [address] [place] [address] 06/04/2024 Mai Perica [facility] [address] 07/23/2024 Mai Perica [facility] [address] [address] 08/12/2024 Mai Perica [facility] [place] [address] 09/02/2024 Mai Perica [facility] [address] [address] 11/04/2024 Mai Perica [facility] [address] [address] 11/12/2024 Mai Perica [facility] [address] [address] 11/14/2024 Mai Perica [facility] [place] [address] [place] [address] 12/20/2024 Mai Perica [facility] [address] [address] 12/25/2024 Mai Perica [facility] [address] [address] 12/30/2024 Mai Perica [facility] [address] [address] 01/28/2025 [facility] [address] [address] 02/06/2025 Justine So [facility] [address] [address] 03/28/2025 Justine So [facility] [address] [address] 05/09/2025 Justine So [facility] [address] [address] 05/19/2025 Justine So Assessments Encounter Date Diagnosis (ICD Code) Assessment Notes Treatment Notes Treatment Clinical Notes Section Notes 06/03/2024 Toe pain, right (ICD-10 - M79.674) [...] 11/14/2024 X ray : Foot, right 3V 01/28/2025, [id number]/INJECT, JOINT/BURSA 1 Next Appt Details Provider Name:Justine Mcneal john, 07/01/2025 10:15:00 AM, [address] [address], [place], [address], Insurance Providers Payer Name Payer Address Payer Phone Subscriber Number Group Number Insured Name Patient Relationship to Insured Coverage Start Date Coverage End Date Medicare National [employer] [address] [place] [address] [id number] Chirag Odom Self - patient is the insured [employer] [address] [place] [address] [phone] [id number] Chirag Odom Self - patient is the insured Medical (General) History Medical History History ICD Code Arthritis Back,Hip,and Knee pain High blood pressure Chicken pox Bone implants/screws Surgical History Surgery Date(Month/Year) rotator cuff surgery 03/2007 back surgery/stenosis 06/2018 left hip replacement 09/2018 1st mpj implant, right P/B 02/28/24
--- OUTSIDE RECORDS SUMMARY | 2025-05-31 10:59 | XMS_ITS | Clinical Summary ---
Author Organization [facility] Address [address] [place] [address] Care Team Providers Care Printed Circuit Boards Contact Printer Name Role Phone Hermilo Fermin MD Primary Care Provider [phone] Surgical History Surgery Date Site/Laterality Comments SHOULDER [...] 1999 Zoster Vaccines (1 of 2) 1999 Cholesterol Screening (Lipid Panel) 09/30/2022 Falls Risk [...] age to complete this topic Care Teams [employer] Contact Printer Relationship Specialty Start Date End Date Hermilo Fermin MD [address] [place] [address] [facility] PCP - General Internal Medicine 02/14/18
--- OUTSIDE RECORDS SUMMARY | 2025-05-31 10:59 | XMS_ITS | Clinical Summary ---
Author Organization [facility] Address [address] [place] [address] Care Team Providers Care Automatic Dry Starch Operator Name Role Phone Hermilo Fermin MD Primary Care Provider [phone] Allergies Active Allergy Reactions Criticality Noted Date [...] age to complete this topic Care Teams Automatic Dry Starch Operator Relationship Specialty Start Date End Date Hermilo Fermin MD [address] [place] [id number] PCP - General Internal Medicine 02/14/18
--- OUTSIDE RECORDS SUMMARY | 2025-05-31 10:59 | XMS_ITS | Clinical Summary ---
Author Organization [facility] Address [id number] [place] [address] Phone Care Team Providers Care Office Helper Clerical Name Role Phone Jennifer Morales MD Primary Care Provide r Allergies Active Allergy Reactions Criticality Noted Date Comments Gluten 02/20/2018 Meperidine 02/20/2018 Medications diclofenac sodium (VOLTAREN) 75 MG EC tabletIndicatio ns:Osteoarthrit is of left hip TAKE 1 TABLET(75 MG) BY MOUTH TWICE DAILY 60 tablet 2 8 Active Additional Information Patient not taking.Reported on 10/03/2023 HYDROmorphone (DILAUDID) 2 MG tablet Take 2 mg by mouth as needed. 0 8 Active gabapentin (NEURONTIN) 300 MG capsule take capsule by mouth once daily at bedtime for 3 days then 2 cap... (REFER TO PRESCRIPTION NOTES). 0 8 Active verapamil (CALAN) 120 MG immediate release tablet Take 125 mg by mouth 3 (three) times a day. Active lisinopril (PRINIVIL,ZESTR IL) 10 MG tablet Take 10 mg by mouth daily. Active Active Problems Problem Noted Date Diagnosed Date Myalgia 05/06/2019 Sacroiliitis, not elsewhere classified 9 Left hip pain 06/05/2018 Family History Medical History Relation Comments No Known Problems Brother No Known Problems Father No Known Problems Maternal Aunt No Known Problems Maternal Grandfather No Known Problems Maternal Grandmother No Known Problems Maternal Uncle No Known Problems Mother No Known Problems Paternal Aunt No Known Problems Paternal Grandfather No Known Problems Paternal Grandmother No Known Problems Paternal Uncle No Known Problems Sister No Known Problems Unspecified Cancer Neg Hx Clotting disorder Neg Hx Collagen disease Neg Hx Depression Neg Hx Diabetes Neg Hx Dislocations Neg Hx Gout Neg Hx Infl. arthritis Neg Hx Osteoporosis Neg Hx Scoliosis Neg Hx Relation Status Comments Brother Father Maternal Aunt Maternal Grandfather Maternal Grandmother Maternal Uncle Mother Paternal Aunt Paternal Grandfather Paternal Grandmother Paternal Uncle Sister Unspecified Social History Tobacco Use Types Packs/Day Years Used Date Smoking Tobacco: Never Smokeless Tobacco: Never Alcohol Use Standard Drinks/Week Comments Yes 0 (1 standard drink = 0.6 oz pur e alcohol) socially Education Answer Date Recorded Are you interested in more education? Not on ramandeep e 02/17/2023 Are you concerned about learning? Not on file 02/17/2023 No 02/17/2023 No 02/17/2023 Digital Access Answer Date Recorded No 03/18/2023 No 03/18/2023 No 03/18/2023 Reliable internet access at home? Not on file 03/18/2023 Device with a working camera? Not on file Comments Unknown Sex and Gender Information Value Date Recorded Sex Assigned at Choose not to disclose 08/2024 3:37 PM EST Legal Sex Male 3:59 PM EDT Gender Identity Choose not to disclose 3:37 PM EST Sexual Orientation Choose not to disclose 2023 3:37 PM EST Last Filed Vital Signs Vital Sign Reading Time Taken Comments Blood Pressure 125/70 05/06/2019 1:07 PM EDT Pulse 52 05/06/2019 1:07 PM EDT Temperature - - Respiratory Rate - - Oxygen Saturation - - Inhaled Oxygen Concentration - - Weight 68.3 kg (150 lb 9.6 oz) 06/26/2019 3:02 P M EDT Height 168.9 cm (5' 6.5 ) 06/26/2019 3:02 PM EDT Body Mass Index 23.94 06/26/2019 3:02 PM EDT Plan of Treatment Health Maintenance Due Date Last Done Comments Adult Td,Tdap Booster 1949 CREATININE LEVEL 1949 LIPID PANEL 1949 POTASSIUM LEVEL 1949 DEPRESSION SCREENING 1961 HEPATITIS C SCREENING 1967 PNEUMOCOCCAL VACCINES (50+ y ears) (1 of 1 - PCV) 1999 ZOSTER VACCINES (1 of 2) 1999 RSV VACCINE (1 - 1-dose 75+ series) 2024 COVID-19 VACCINE (2 - 2023-2 5 season) 2024 01/25/2021 SMOKING STATUS SCREENING (On ce After 26 Yrs) Completed 06/11/2018 HEPATITIS A VACCINES Aged Out No long er eligible based on patient's age to complete this topic HIB VACCINES Aged Out No longer eligi ble based on patient's age to complete this topic MENINGOCOCCAL VACCINES (ACWY) Aged Out No longer eligible based on patient's age to complete this topic MENINGOCOCCAL VACCINES (B) Aged Out N o longer eligible based on patient's age to complete this topic Medical Devices Not on file Insurance MEDICARE PART A & B [facility] MEDEX SUPPLEMENT MEDICARE PART A & B Member Subscriber Plan / Payer ( fective 2015-Present) Name:Chirag Odom Member ID:[id number] Relation to Subscriber:Self Name:Lei Chirag Subscriber ID:[id number] Payer ID:[id number] Group ID:Not on file Type:Medicare Address: [employer] [address] [employer] MEDEX SUPPLEMENT MEDICARE PART A & B [employer] MEDEX SUPPLEMENT MEDICARE PART A & B [employer] MEDEX SUPPLEMENT MEDICARE PART A & B [employer] MEDEX SUPPLEMENT [place], [place] MEDICARE PART A & B [facility] MEDEX SUPPLEMENT [place], [place] Care Teams Office Helper Clerical Relationship Specialty Start Date End Date Jennifer Morales MD [address] [place] [address] PCP - General Geriatric Psychiatry 06/26/19 Additional Source Comments The information contained in this document represents components of the legal health record. It is not the complete legal health record.[facility]
== END 2025-05-31 10:57 | disposition home or self-care (01) ==
LOC: HO.MRI 10:56
PROVIDERS: PCP Internal Medicine; Visit Provider Orthopaedic Surgery
DX: M25.551 Pain in right hip (principal)
CPT/HCPCS: 73721